=== PATIENT | female | born 1960 | race Caucasian/White ===

== ENCOUNTER 2018-07-22 16:44 | Inpatient (IN) ==
[2018-07-22] MEDS ORDERED: Aluminum/Magnesium/Simethacone Susp 30 ML UDC PO PRN (21:19)
[2018-07-22] MEDS ORDERED: Melatonin 5 MG Tablet PO PRN (21:22)
[2018-07-22] MEDS ORDERED: LORazepam 1 MG Tablet PO PRN (21:26)
[2018-07-22] MEDS ORDERED: Sodium Chloride 0.9% 2 ML Flush PRN IV.FLUSH (21:31)
[2018-07-22] MEDS: Folic Acid 1 MG Tablet PO SCH (21:59)
[2018-07-22 22:04] LABS: Baso # (Auto) 0.1 th/mm3 (0.0-0.2); Baso % (Auto) 0.9 % (0.0-2.0); Eos % (Auto) 0.4 % (0.0-4.0); Hematocrit 42.3 % (35.0-46.0); Hemoglobin 14.9 gm/dL (11.6-15.3); Lymph # (Auto) 1.8 th/mm3 (1.0-4.8); Lymph % (Auto) 18.4 % (9.0-44.0); Mean Corpuscular HGB Conc 35.2 % (32.0-36.0); Mean Corpuscular Hemoglobin 34.7 pg (27.0-34.0); Mean Corpuscular Volume 98.6 fL (80.0-100.0); Mono # (Auto) 0.6 th/mm3 (0.0-0.9); Mono % (Auto) 6.4 % (0.0-8.0); Neut # (Auto) 7.4 th/mm3 (1.8-7.7); Neut % (Auto) 73.9 % (16.0-70.0); Platelet Count 230 th/mm3 (150-450); Red Blood Count 4.29 mil/mm3 (4.00-5.30); Red Cell Distribution Width 12.9 % (11.6-17.2)
[2018-07-22 22:17] LABS: Prothrombin Time 10.2 sec (9.8-11.6)
[2018-07-22 22:27] LABS: Albumin 3.9 g/dL (3.4-5.0); Anion Gap 14 meq/L (5-15); Aspartate Aminotransferase 19 U/L (15-37); Blood Urea Nitrogen 8 mg/dL (7-18); Calcium 8.8 mg/dL (8.5-10.1); Carbon Dioxide 23.3 meq/L (21.0-32.0); Chloride 104 meq/L (98-107); Glomerular Filtration Rate 85 mL/min (>89); Glucose,Random 70 mg/dL (74-106); Potassium 3.4 meq/L (3.5-5.1); Sodium 141 meq/L (136-145)
[2018-07-22 22:28] LABS: Alanine Aminotransferase 22 U/L (10-53)
[2018-07-22 22:30] LABS: Alkaline Phosphatase 112 U/L (45-117); Total Protein 7.8 g/dL (6.4-8.2)
[2018-07-23] MEDS: Folic Acid 1 MG Tablet PO SCH (08:50)
[2018-07-23 08:58] LABS: Baso # (Auto) 0.1 th/mm3 (0.0-0.2); Baso % (Auto) 1.5 % (0.0-2.0); Eos # (Auto) 0.1 th/mm3 (0.0-0.4); Eos % (Auto) 0.7 % (0.0-4.0); Hematocrit 41.1 % (35.0-46.0); Hemoglobin 14.3 gm/dL (11.6-15.3); Lymph # (Auto) 0.7 th/mm3 (1.0-4.8); Lymph % (Auto) 7.4 % (9.0-44.0); Mean Corpuscular HGB Conc 34.9 % (32.0-36.0); Mean Corpuscular Volume 100.4 fL (80.0-100.0); Mean Platelet Volume 7.5 fL (7.0-11.0); Mono # (Auto) 0.4 th/mm3 (0.0-0.9); Mono % (Auto) 4.6 % (0.0-8.0); Neut # (Auto) 8.1 th/mm3 (1.8-7.7); Neut % (Auto) 85.8 % (16.0-70.0); Platelet Count 230 th/mm3 (150-450); Red Blood Count 4.09 mil/mm3 (4.00-5.30); Red Cell Distribution Width 13.2 % (11.6-17.2); White Blood Count 9.4 th/mm3 (4.0-11.0)
[2018-07-23] MEDS ORDERED: Sodium Chloride 0.9% 2 ML Flush BID IV.FLUSH SCH (09:00)
[2018-07-23 09:33] LABS: Albumin 3.6 g/dL (3.4-5.0); Anion Gap 13 meq/L (5-15); Aspartate Aminotransferase 19 U/L (15-37); Blood Urea Nitrogen 12 mg/dL (7-18); Calcium 8.4 mg/dL (8.5-10.1); Carbon Dioxide 22.8 meq/L (21.0-32.0); Chloride 103 meq/L (98-107); Glomerular Filtration Rate Greater Than 89 mL/min (>89); Glucose,Random 140 mg/dL (74-106); Potassium 3.6 meq/L (3.5-5.1); Sodium 139 meq/L (136-145)
[2018-07-23 09:34] LABS: Cholesterol 198 mg/dL (120-200)
[2018-07-23 09:44] LABS: Alanine Aminotransferase 20 U/L (10-53); Alkaline Phosphatase 106 U/L (45-117); Chol/HDL Ratio 3.89 Ratio; HDL Cholesterol 50.8 mg/dL (40.0-60.0); LDL Cholesterol,Calculated 100 mg/dL (0-99); Total Protein 7.4 g/dL (6.4-8.2); Triglycerides 237 mg/dL (42-150)
--- NOTE | 2018-07-23 10:31 | P.HPPSY ---
Provisional Diagnosis Admission Date: July 22, 2018 19:58 [place] I.: 1. Adjustment disorder with mixed disturbance of emotions and conduct Rule out major depressive episode 2. Alcohol abuse 3. Reported history of depression and anxiety [place] II.: Deferred Competence Certification of Person's Competence To Provide Express and Informed Consent I have personally examined Shirley Macias, a person being served at [facility] on, July 23, 2018 1031. Express and informed consent means consent voluntarily given in writing, by a competent person, after sufficient explanation and disclosure of the subject matter involved to enable the person to make a knowing and willful decision without any element of force, fraud, deceit, duress, or other form of constraint or coercion. This person is 18 years of age or older, is not now known to be incompetent to consent to treatment with a guardian advocate, and does not have a health care surrogate or proxy currently making medical treatment decisions. I have found this person to be one of the following: [] Competent to provide express and informed consent, as defined above, for voluntary admission to this facility and is competent to provide express and informed consent for treatment. He/she has the consistent capacity to make well reasoned, willful, and knowing decisions concerning his or her medical or mental health treatment. The person fully and consistently understands the purpose of the admission for examination/placement and is fully capable of personally exercising all rights assured under [place] [] Incompetent to provide express and informed consent to voluntary admission, and this is incompetent to provide express and informed consent to treatment. The person must be transferred to involuntary status and a petition for a guardian advocate filed with the Circuit Court. [X] Refusing to provide express and informed consent to voluntary admission but is competent to provide express and informed consent for treatment. The person must be discharged or transferred to involuntary status. Form shall be completed within 24 hours of a person's arrival at the receiving facility and filed in the clinical record of each person: 1. Admitted on a voluntary basis 2. Permitted to provide express and informed consent to his/her own treatment 3. Allowed to transfer from involuntary to voluntary status 4. Prior to permitting a person to consent to his or her own treatment after having been previously found incompetent to consent to treatment. History of Present Illness Capacity: Has capacity (to consent for meds/treatment) Chief Complaint: Overdose History of Present Illness: Ms. Macias is a 58-year-old female with a reported history of depression and anxiety who presents in transfer from [facility] under a Garza Act initiated by law enforcement alleging overdose on Aleve in the setting of alcohol. Documents from outside hospital reviewed. Patient was medically cleared at outside hospital, although she apparently did require intubation initially secondary to her overdose. Reviewing our electronic medical record, it appears this is patient's first visit to [place]. Patient seen and examined with counselor and nurse. Chart reviewed. Case discussed with nursing staff. Case discussed with counselor. On my examination today, the patient maintains that she does not recall her presenting overdose. She says that she had had a great day the day that she made her overdose. She says that she began drinking with her boyfriend, Benny, after Benny's parents went to sleep as it is typical for them. She says that Benny later informed her that she became upset when he castigated her slurred speech and it was apparently in this setting that the patient made her presenting overdose, although again the patient has no personal recollection of this. She does note that she had been off of her Paxil for 6 days secondary to running out and had been noting that she had been crying more off of this medication. Presently, the patient says that she feels somewhat irritable. She denies any suicidal or homicidal ideation, intent or plan. She has no hypomanic or manic symptoms presently, nor does she give any history of same. She denies any audiovisual hallucinations. I can elicit no delusional believes. The remainder of the psychiatric ROS is negative. She does complain of some throat discomfort secondary to having been intubated. No other acute physical complaints. Past psychiatric history: The patient reports that she has depression and anxiety. She is not presently under the care of a psychiatrist but has been prescribed Paxil 20 mg a day for the last year. She denies any history of psychiatric admissions or suicide attempts. Family history: The patient denies a family history of serious mental illness or suicide. She does report that her father struggled with alcohol use issues and that there is an extensive family history of alcoholism in the family. Chemical dependency history: The patient denies any abuse of illicit drugs. She does say that she typically drinks about 8 beers a night, although she emphasizes this is not every night, after Benny's parents go to sleep. She denies any history of DTs or seizures. She does note that she has sometimes been hung over the next day. She attended a 12-step meeting 1 time but "I did not like them digging into my personal life" and so did not return. Patient also smokes cigarettes. Social history: The patient moved to the area 6 months ago to help take care of Benny's parents. She has a 22-year-old daughter with cerebral palsy and a 28- year-old daughter. She previously worked at the [email or web address]. She denies any history. She denies any legal problems. Denies any access to guns or firearms. She is a [employer]ism. Past medical history includes a history of hypothyroidism and hypertension. - Inpatient Certification I certify that the inpatient services were ordered in accordance with Medicare regulations governing the order. This includes certification that hospital inpatient services are reasonable and necessary and in the case of services not specified as inpatient-only under 42 CFR 419.22(n), that they are appropriately provided as inpatient services in accordance to with the 2-midnight benchmark under 43 CFR 412.3(e) I certify that inpatient psychiatric hospital services are medically necessary. Evaluation and treatment and/or diagnostic testing are expected to improve the patient's condition. The patient needs on a daily basis, active treatment furnished directly by or requiring the supervision of inpatient psychiatric facility personnel. Estimated Total Length of Stay (Days): 5 (3-5) Plans for Post Hospital Care: Not yet determined Review of Systems All other systems reviewed negative except as stated in HPI Quality Measures - Psychiatric History Psychological trauma history: No reported trauma history to me - Patient Strengths Patient's strengths (minimum of 2): In a monitored setting. Verbally fluent. Medications and Allergies Active Medications: Active Medications Acetaminophen (Tylenol) 650 mg PO Q4H PRN PRN Reason: Pain 1-5 or Temp >101F Al Hydrox/Mg Hydrox/Simethicone (Mag-Al Plus Susp Liq) 30 ml PO Q6H PRN PRN Reason: DYSPEPSIA Al Hydroxide/Mg Hydroxide (Milk Of Magnesia Liq) 30 ml PO DAILY PRN PRN Reason: Constipation Flumazenil (Romazecon Inj) 0.2 mg IV.PUSH Q1M PRN PRN Reason: OVERSEDATION Folic Acid (Folic Acid) 1 mg PO DAILY [facility] Last Admin: 07/23/18 08:50 Dose: 1 mg Lorazepam (Ativan) 1 mg PO Q4H PRN PRN Reason: for CIWA 8-10 Lorazepam (Ativan) 2 mg PO Q2H PRN PRN Reason: for CIWA 11-14 Lorazepam (Ativan Inj) 2 mg IV.PUSH Q2H PRN PRN Reason: for CIWA 11-14 Lorazepam (Ativan Inj) 2 mg IV.PUSH Q15M PRN PRN Reason: for CIWA > 20 Lorazepam (Ativan Inj) 1 mg IV.PUSH Q4H PRN PRN Reason: for CIWA 8-10 Lorazepam (Ativan Inj) 2 mg IV.PUSH Q1H PRN PRN Reason: for CIWA 15-20 Melatonin (Melatonin) 5 mg PO HS PRN PRN Reason: INSOMNIA Nicotine (Habitrol 21 Mg Patch.24 Hr) 1 patch T-DERMAL DAILY PRN PRN Reason: NICOTINE CRAVING Patch Removal (Remove Old Patch) 1 each T-DERMAL HS [facility] Last Admin: 07/22/18 21:56 Dose: Not Given Sodium Chloride (Ns Flush) 2 ml IV.FLUSH BID [facility] Last Admin: 07/23/18 08:39 Dose: Not Given Sodium Chloride (Ns Flush) 2 ml IV.FLUSH PRN PRN PRN Reason: FLUSH AFTER USING IV ACCESS Thiamine HCl (Vitamin B1) 100 mg PO DAILY [facility] Last Admin: 07/23/18 08:50 Dose: 100 mg Allergies Allergy/AdvReac Type Severity Reaction Status Date / Time No Known Allergies Allergy Verified 07/22/18 20:09 Results - Labs CBC & Chem 7: 07/23/18 08:40 07/23/18 08:40 Labs: Laboratory Results - last 24 hr 07/22/18 07/22/18 07/22/18 21:53 21:53 21:53 WBC 10.0 RBC 4.29 Hgb 14.9 Hct 42.3 MCV 98.6 MCH 34.7 H MCHC 35.2 RDW 12.9 Plt Count 230 MPV 8.0 Prelim Diff (Auto) Slide review pending Neut % (Auto) 73.9 H Lymph % (Auto) 18.4 [place] % (Auto) 6.4 Eos % (Auto) 0.4 Baso % (Auto) 0.9 Neut # (Auto) 7.4 Lymph # (Auto) 1.8 [place] # (Auto) 0.6 Eos # (Auto) 0.0 Baso # (Auto) 0.1 WBC Differential . Diff Scan Auto diff confirmed Differential Comment . PT 10.2 INR 1.0 Sodium 141 Potassium 3.4 L Chloride 104 Carbon Dioxide 23.3 Anion Gap 14 BUN 8 Creatinine 0.71 Estimated GFR 85 L Random Glucose 70 L Calcium 8.8 Total Bilirubin 0.9 AST 19 ALT 22 Alkaline Phosphatase 112 Ammonia Total Protein 7.8 Albumin 3.9 Triglycerides Cholesterol LDL Cholesterol, Calc HDL Cholesterol Cholesterol/HDL Ratio TSH 07/22/18 07/23/18 07/23/18 21:53 08:40 08:40 WBC 9.4 RBC 4.09 Hgb 14.3 Hct 41.1 MCV 100.4 H MCH 35.0 H MCHC 34.9 RDW 13.2 Plt Count 230 MPV 7.5 Prelim Diff (Auto) Neut % (Auto) 85.8 H Lymph % (Auto) 7.4 L [place] % (Auto) 4.6 Eos % (Auto) 0.7 Baso % (Auto) 1.5 Neut # (Auto) 8.1 H Lymph # (Auto) 0.7 L [place] # (Auto) 0.4 Eos # (Auto) 0.1 Baso # (Auto) 0.1 WBC Differential . Diff Scan Differential Comment Auto diff final PT INR Sodium 139 Potassium 3.6 Chloride 103 Carbon Dioxide 22.8 Anion Gap 13 BUN 12 Creatinine 0.64 Estimated GFR Greater than 89 Random Glucose 140 H Calcium 8.4 L Total Bilirubin 0.9 AST 19 ALT 20 Alkaline Phosphatase 106 Ammonia 17 Total Protein 7.4 Albumin 3.6 Triglycerides 237 H Cholesterol 198 LDL Cholesterol, Calc 100 H HDL Cholesterol 50.8 Cholesterol/HDL Ratio 3.89 TSH 0.620 Labs reviewed. Exam Vital signs: Vital Signs 07/22/18 20:12 07/22/18 20:51 07/23/18 05:46 Temperature 97.4 F L 97.6 F Pulse Rate 90 80 Respiratory Rate 18 17 Blood Pressure 180/88 H 143/90 H 142/95 H Pulse Oximetry 98 98 Intake & Output 07/22/18 07/23/18 07/23/18 18:59 06:59 18:59 Weight 71.6 kg Other: Weight On Admission 71.6 kg Narrative: Physical exam was completed at outside hospital. On my exam, patient appears to be in no acute physical distress. No motor abnormalities noted. No signs of intoxication or withdrawal noted. Labs and vitals reviewed. Mental Status Examination Appearance: Appropriate Consciousness: Alert Orientation: x4 Motor Activity: Normal gait Speech: Unremarkable Language: Adequate Fund of Knowledge: Adequate Attention and Concentration: Adequate Memory: Unremarkable (Grossly intact on clinical exam) Mood: Irritable Affect: Appropriate Thought Process & Associations: Intact Thought Content: Appropriate Hallucination Type: None Delusion Type: None Suicidal Ideation: No (Unclear whether patient is reliable to contract for safety) Suicidal Plan: No Suicidal Intention: No Homicidal Ideation: No Homicidal Plan: No Homicidal Intention: No Insight: Fair Judgment: Impulsive Assessment and Plan - Assessment (1) Adjustment disorder with mixed disturbance of emotions and conduct Code(s): F43.25 - Adjustment disorder with mixed disturbance of emotions and conduct Status: Acute (2) Alcohol abuse Code(s): F10.10 - Alcohol abuse, uncomplicated Status: Acute - Plan Plan: 58-year-old female with psychiatric history as detailed above who presents in transfer from outside hospital under Garza act. On my examination today, the patient insists that she has no recollection of presenting overdose as she was intoxicated with alcohol at the time. She denies SI or HI now. She does note that she had been without her Paxil prior to admission. Patient requires psychiatric hospitalization at this time for safety, observation and stabilization. Admit inpatient. Patient is presently declining to consent for voluntary admission. Involuntary status. I have completed first opinion. Consult for second opinion. Patient retains capacity to consent for medication. Resume Paxil 20 mg daily. Atarax as needed for anxiety. Melatonin as needed for sleep. Hospitalist consultation to follow up on patient's presenting overdose. CIWA scale with Ativan for the management of any withdrawal. Thiamine and folate. Seizure precautions. Vitals every shift. Counselor to see. Collateral information. Disposition planning. Estimated length of stay: 3-5 days. Justification for Continued Inpatient Stay: See above Discharge Planning: In a monitored setting. Verbally fluent.
--- NOTE | 2018-07-23 13:08 | P.CONPSY ---
Provisional Diagnosis Admission Date: July 22, 2018 19:58 [place] I.: 1. Adjustment disorder with mixed disturbance of emotions and conduct Rule out major depressive episode 2. Alcohol abuse 3. Reported history of depression and anxiety [place] II.: Deferred History of Present Illness Service: Psychiatry Primary Care Provider: UNKNOWN History of Present Illness: Ms. Macias is a 58-year-old female with a reported history of depression and anxiety who presents in transfer from [facility] under a Garza Act initiated by law enforcement alleging overdose on Aleve in the setting of alcohol. Documents from outside hospital reviewed. Patient was medically cleared at outside hospital, although she apparently did require intubation initially secondary to her overdose. Reviewing our electronic medical record, it appears this is patient's first visit to [place].Patient seen and examined with counselor and nurse. Chart reviewed. Case discussed with nursing staff. Case discussed with counselor. On my examination today, the patient maintains that she does not recall her presenting overdose. She says that she had had a great day the day that she made her overdose. She says that she began drinking with her boyfriend, Benny, after Benny's parents went to sleep as it is typical for them. She says that Benny later informed her that she became upset when he castigated her slurred speech and it was apparently in this setting that the patient made her presenting overdose, although again the patient has no personal recollection of this. She does note that she had been off of her Paxil for 6 days secondary to running out and had been noting that she had been crying more off of this medication. Presently, the patient says that she feels somewhat irritable. She denies any suicidal or homicidal ideation, intent or plan. She has no hypomanic or manic symptoms presently, nor does she give any history of same. She denies any audiovisual hallucinations. I can elicit no delusional believes. The remainder of the psychiatric ROS is negative. She does complain of some throat discomfort secondary to having been intubated. No other acute physical complaints. The patient is a 58-year-old woman, domiciled in [facility], with a psychiatric history of anxiety and depression, alcohol use disorder, who was admitted in psychiatry on the Garza act due to a suicidal attempt by overdosing with alcohol and pain medication. Patient was admitted in critical care, intubated, now medically clear. Consulted to me for second opinion. On psychiatric evaluation the patient is irritable, kind of oppositional, and stating that she does not want make the same story anymore. The patient states that she does not remember the circumstances around her overdose. She clarifies that she was very drunk and she did not have any recent to kill herself. She says that she is surprised that she overdosed and she cannot understand it. Patient says that she has too many reasons to live for. She admits that she has been drinking more alcohol than usual. At this moment she denies suicidal enemas ideation, she denies visual and auditory hallucinations. Medications and Allergies Active Medications: Active Medications Acetaminophen (Tylenol) 650 mg PO Q4H PRN PRN Reason: Pain 1-5 or Temp >101F Al Hydrox/Mg Hydrox/Simethicone (Mag-Al Plus Susp Liq) 30 ml PO Q6H PRN PRN Reason: DYSPEPSIA Al Hydroxide/Mg Hydroxide (Milk Of Magnesia Liq) 30 ml PO DAILY PRN PRN Reason: Constipation Benzocaine (Hurricaine 20% Oral [place]) 1 spray OROPHARYNG Q6H PRN PRN Reason: Throat discomfort Flumazenil (Romazecon Inj) 0.2 mg IV.PUSH Q1M PRN PRN Reason: OVERSEDATION Folic Acid (Folic Acid) 1 mg PO DAILY [facility] Last Admin: 07/23/18 08:50 Dose: 1 mg Hydroxyzine HCl (Atarax) 50 mg PO Q6H PRN PRN Reason: ANXIETY Lorazepam (Ativan) 1 mg PO Q4H PRN PRN Reason: for CIWA 8-10 Lorazepam (Ativan) 2 mg PO Q2H PRN PRN Reason: for CIWA 11-14 Lorazepam (Ativan Inj) 2 mg IV.PUSH Q2H PRN PRN Reason: for CIWA 11-14 Lorazepam (Ativan Inj) 2 mg IV.PUSH Q15M PRN PRN Reason: for CIWA > 20 Lorazepam (Ativan Inj) 1 mg IV.PUSH Q4H PRN PRN Reason: for CIWA 8-10 Lorazepam (Ativan Inj) 2 mg IV.PUSH Q1H PRN PRN Reason: for CIWA 15-20 Melatonin (Melatonin) 5 mg PO HS PRN PRN Reason: INSOMNIA Nicotine (Habitrol 21 Mg Patch.24 Hr) 1 patch T-DERMAL DAILY PRN PRN Reason: NICOTINE CRAVING Last Admin: 07/23/18 11:33 Dose: 1 patch Paroxetine HCl (Paxil) 20 mg PO DAILY [facility] Last Admin: 07/23/18 11:33 Dose: 20 mg Patch Removal (Remove Old Patch) 1 each T-DERMAL HS [facility] Last Admin: 07/22/18 21:56 Dose: Not Given Thiamine HCl (Vitamin B1) 100 mg PO DAILY [facility] Last Admin: 07/23/18 08:50 Dose: 100 mg Allergies Allergy/AdvReac Type Severity Reaction Status Date / Time No Known Allergies Allergy Verified 07/22/18 20:09 Home Medications Medication Instructions Recorded Confirmed Type levothyroxine 88 mcg PO DAILY 07/23/18 07/23/18 History lisinopril 20 mg PO DAILY 07/23/18 07/23/18 History paroxetine HCl [Paxil] 20 mg PO DAILY 07/23/18 07/23/18 History Exam Vital signs: Vital Signs 07/22/18 20:12 07/22/18 20:51 07/23/18 05:46 Temperature 97.4 F L 97.6 F Pulse Rate 90 80 Respiratory Rate 18 17 Blood Pressure 180/88 H 143/90 H 142/95 H Pulse Oximetry 98 98 Intake & Output 07/22/18 07/23/18 07/23/18 18:59 06:59 18:59 Weight 71.6 kg Other: Weight On Admission 71.6 kg Mental Status Examination Appearance: Appropriate Consciousness: Alert Orientation: x4 Motor Activity: Normal gait Speech: Unremarkable Language: Adequate Fund of Knowledge: Adequate Attention and Concentration: Adequate Memory: Unremarkable (Grossly intact on clinical exam) Mood: Irritable Affect: Appropriate Thought Process & Associations: Intact Thought Content: Appropriate Hallucination Type: None Delusion Type: None Suicidal Ideation: No (Unclear whether patient is reliable to contract for safety) Suicidal Plan: No Suicidal Intention: No Homicidal Ideation: No Homicidal Plan: No Homicidal Intention: No Insight: Fair Judgment: Impulsive Assessment and Plan - Assessment (1) Adjustment disorder with mixed disturbance of emotions and conduct Code(s): F43.25 - Adjustment disorder with mixed disturbance of emotions and conduct Status: Acute (2) Alcohol abuse Code(s): F10.10 - Alcohol abuse, uncomplicated Status: Acute - Plan Plan: I have seen and examined this patient, reviewed documentation, I agree and concur with Dr. Payton assessment and plan. Justification for Continued Inpatient Stay: Continue admission
[2018-07-23] MEDS ORDERED: Lisinopril 20 MG Tablet PO ONE (13:57)
--- NOTE | 2018-07-23 16:01 | P.CON ---
History of Present Illness Service: Hospitalists Consult date: 07/23/18 Requesting Physician: Neri Payton Reason for Consult: Follow up on overdose Primary Care Provider: UNKNOWN Chief Complaint: depression/overdose History of Present Illness: 58-year-old female with history of hypertension, hypothyroidism, depression, anxiety, admitted to inpatient psychiatry under Garza act from [facility] after hospitalization for overdose on alcohol and Aleve requiring intubation. Hospitalist consulted to follow-up on overdose and medical management. The patient is seen in her room with RN at bedside. The patient's only medical complaint is a sore throat due to being intubated during last hospitalization. She reports an occasional nonproductive cough which he believes is secondary to irritation in the back of her throat. She is requesting a numbing spray that she received at the previous hospital. She denies any fever/chills or chest pains. She is tolerating oral intake. Denies any abdominal pain, nausea/vomiting, or diarrhea. Denies any urinary complaints. She is on lisinopril for her high blood pressure and Synthroid for her hypothyroidism. She denies any other medical problems. She has no other medical complaints at this time. Review of Systems All other systems reviewed negative except as stated in HPI PMFSH - History History Provided By: Patient - Medical History Medical History: Medical History (Last Updated 07/23/18 @ 16:09 by Phuong Bernabe) Anxiety Depression History of hysterectomy Hypertension Hypothyroidism - Surgical History Surgical History: Surgical History (Last Updated 07/23/18 @ 16:09 by Phuong Bernabe) History of ankle surgery History of section - Family History Family History: Family History (Last Updated 07/23/18 @ 16:10 by Phuong Bernabe) Sister Autoimmune disorder Grandparent Heart disease Grandparent Stroke Father Cirrhosis Mother Kidney failure - Social History I have reviewed the patient's Social History: Yes - Tobacco History Tobacco Use In Past 30 Days: Yes Smoking Status: Current every day smoker (2/3 PPD) Tobacco Type: Cigarettes - Alcohol History How Often Do You Have a Drink Containing Alcohol: 2 to 3 times a week (8 beers at a time) - Substance Use Type Alcohol Status: Active Route Used: By Mouth Frequency: 8 beers or 4 mini citlaly every other day Reason for Use: Calm Down, Feels Good Medications and Allergies Active Medications: Active Medications Acetaminophen (Tylenol) 650 mg PO Q4H PRN PRN Reason: Pain 1-5 or Temp >101F Al Hydrox/Mg Hydrox/Simethicone (Mag-Al Plus Susp Liq) 30 ml PO Q6H PRN PRN Reason: DYSPEPSIA Al Hydroxide/Mg Hydroxide (Milk Of Magnesia Liq) 30 ml PO DAILY PRN PRN Reason: Constipation Benzocaine (Hurricaine 20% Oral Collbran) 1 spray OROPHARYNG Q6H PRN PRN Reason: Throat discomfort Benzonatate (Tessalon Perles) 100 mg PO Q8H PRN PRN Reason: COUGH Flumazenil (Romazecon Inj) 0.2 mg IV.PUSH Q1M PRN PRN Reason: OVERSEDATION Folic Acid (Folic Acid) 1 mg PO DAILY [facility] Last Admin: 07/23/18 08:50 Dose: 1 mg Hydroxyzine HCl (Atarax) 50 mg PO Q6H PRN PRN Reason: ANXIETY Levothyroxine Sodium (Synthroid) 88 mcg PO DAILY@0600 [facility] Lisinopril (Prinivil) 20 mg PO DAILY [facility] Lorazepam (Ativan) 1 mg PO Q4H PRN PRN Reason: for CIWA 8-10 Lorazepam (Ativan) 2 mg PO Q2H PRN PRN Reason: for CIWA 11-14 Lorazepam (Ativan Inj) 2 mg IV.PUSH Q2H PRN PRN Reason: for CIWA 11-14 Lorazepam (Ativan Inj) 2 mg IV.PUSH Q15M PRN PRN Reason: for CIWA > 20 Lorazepam (Ativan Inj) 1 mg IV.PUSH Q4H PRN PRN Reason: for CIWA 8-10 Lorazepam (Ativan Inj) 2 mg IV.PUSH Q1H PRN PRN Reason: for CIWA 15-20 Melatonin (Melatonin) 5 mg PO HS PRN PRN Reason: INSOMNIA Nicotine (Habitrol 21 Mg Patch.24 Hr) 1 patch T-DERMAL DAILY PRN PRN Reason: NICOTINE CRAVING Last Admin: 07/23/18 11:33 Dose: 1 patch Paroxetine HCl (Paxil) 20 mg PO DAILY [facility] Last Admin: 07/23/18 11:33 Dose: 20 mg Patch Removal (Remove Old Patch) 1 each T-DERMAL HS [facility] Last Admin: 07/22/18 21:56 Dose: Not Given Thiamine HCl (Vitamin B1) 100 mg PO DAILY [facility] Last Admin: 07/23/18 08:50 Dose: 100 mg Allergies Allergy/AdvReac Type Severity Reaction Status Date / Time No Known Allergies Allergy Verified 07/22/18 20:09 Home Medications Medication Instructions Recorded Confirmed Type levothyroxine 88 mcg PO DAILY 07/23/18 07/23/18 History lisinopril 20 mg PO DAILY 07/23/18 07/23/18 History paroxetine HCl [Paxil] 20 mg PO DAILY 07/23/18 07/23/18 History Physical Exam Vital signs: Vital Signs 07/22/18 20:12 07/22/18 20:51 07/23/18 05:46 Temperature 97.4 F L 97.6 F Pulse Rate 90 80 Respiratory Rate 18 17 Blood Pressure 180/88 H 143/90 H 142/95 H Pulse Oximetry 98 98 Intake & Output 07/22/18 07/23/18 07/23/18 18:59 06:59 18:59 Weight 71.6 kg Other: Weight On Admission 71.6 kg Narrative: GENERAL: Well-nourished, well-developed pleasant middle-age female patient in [facility]. SKIN: Warm and dry. No rash. HEENT: Normocephalic. Atraumatic. Pupils equal and round. Mucous membranes pink and moist. Posterior oropharynx with mild erythema/irritation; no tonsillar exudate/edema. NECK: Supple. Trachea midline. CARDIOVASCULAR: Regular rate and rhythm. No murmur appreciated. RESPIRATORY: No accessory muscle use. Clear to auscultation. Breath sounds equal bilaterally. GASTROINTESTINAL: Abdomen soft, non-tender, nondistended. Normoactive bowel sounds x4. MUSCULOSKELETAL: No obvious deformities. Extremities without clubbing, cyanosis , or edema. NEUROLOGICAL: Awake and alert. No obvious cranial nerve deficits. Motor grossly within normal limits. Moving all extremities spontaneously. Normal speech. PSYCHIATRIC: Appropriate mood and affect; insight and judgment normal. Results - Labs CBC & Chem 7: 07/23/18 08:40 07/23/18 08:40 Labs: Laboratory Results - last 24 hr 07/22/18 07/22/18 07/22/18 21:53 21:53 21:53 WBC 10.0 RBC 4.29 Hgb 14.9 Hct 42.3 MCV 98.6 MCH 34.7 H MCHC 35.2 RDW 12.9 Plt Count 230 MPV 8.0 Prelim Diff (Auto) Slide review pending Neut % (Auto) 73.9 H Lymph % (Auto) 18.4 [place] % (Auto) 6.4 Eos % (Auto) 0.4 Baso % (Auto) 0.9 Neut # (Auto) 7.4 Lymph # (Auto) 1.8 [place] # (Auto) 0.6 Eos # (Auto) 0.0 Baso # (Auto) 0.1 WBC Differential . Diff Scan Auto diff confirmed Differential Comment . PT 10.2 INR 1.0 Sodium 141 Potassium 3.4 L Chloride 104 Carbon Dioxide 23.3 Anion Gap 14 BUN 8 Creatinine 0.71 Estimated GFR 85 L Random Glucose 70 L Calcium 8.8 Total Bilirubin 0.9 AST 19 ALT 22 Alkaline Phosphatase 112 Ammonia Total Protein 7.8 Albumin 3.9 Triglycerides Cholesterol LDL Cholesterol, Calc HDL Cholesterol Cholesterol/HDL Ratio TSH 07/22/18 07/23/18 07/23/18 21:53 08:40 08:40 WBC 9.4 RBC 4.09 Hgb 14.3 Hct 41.1 MCV 100.4 H MCH 35.0 H MCHC 34.9 RDW 13.2 Plt Count 230 MPV 7.5 Prelim Diff (Auto) Neut % (Auto) 85.8 H Lymph % (Auto) 7.4 L [place] % (Auto) 4.6 Eos % (Auto) 0.7 Baso % (Auto) 1.5 Neut # (Auto) 8.1 H Lymph # (Auto) 0.7 L [place] # (Auto) 0.4 Eos # (Auto) 0.1 Baso # (Auto) 0.1 WBC Differential . Diff Scan Differential Comment Auto diff final PT INR Sodium 139 Potassium 3.6 Chloride 103 Carbon Dioxide 22.8 Anion Gap 13 BUN 12 Creatinine 0.64 Estimated GFR Greater than 89 Random Glucose 140 H Calcium 8.4 L Total Bilirubin 0.9 AST 19 ALT 20 Alkaline Phosphatase 106 Ammonia 17 Total Protein 7.4 Albumin 3.6 Triglycerides 237 H Cholesterol 198 LDL Cholesterol, Calc 100 H HDL Cholesterol 50.8 Cholesterol/HDL Ratio 3.89 TSH 0.620 Assessment and Plan - Plan 58-year-old female with history of hypertension, hypothyroidism, depression, anxiety, admitted to inpatient psychiatry under Garza act from [facility] after hospitalization for overdose on alcohol and Aleve requiring intubation. Hospitalist consulted to follow-up on overdose and medical management. Depression/overdose: Acute, medically stabilized from overdose during previous admission at [facility] -Vital signs reviewed and stable, patient AAO x4 -Continue treatment of depression per psychiatry Hypertension: BP elevated, has not received home medications -Restart home lisinopril 20 mg daily -Monitor BP, adjust antihypertensives as needed Hypothyroidism: Chronic -TSH within normal limits -Continue patient's Synthroid Sore throat/Cough: Secondary to irritation from recent intubation -Continue benzocaine spray as needed -Tessalon Perles prn cough -Patient is at risk for developing pneumonia secondary to recent intubation, however afebrile, no leukocytosis, and nonproductive cough -If the patient does develop fever, leukocytosis, or purulent cough, consider CXR Hyperlipidemia: LDL 100 -mortgage loan counselor on diet control for now, no hx of stroke, heart disease, or diabetes -repeat lipid panel in 3 months as outpatient Alcohol Abuse: patient drinks 8beers 3x/week. Denies any hx of withdrawal or seizures -mortgage loan counselor on cessation -continue thiamine/folate/MV -CIWA protocol -monitor for withdrawal Tobacco Abuse: chronic, smokes over 1/2 PPD cigarettes -mortgage loan counselor on cessation -continue nicotine patch Elevated Blood Glucose: BG 140. No reported hx of diabetes -checking HgbA1c DVT Prophylaxis: patient is ambulatory Discharge Planning: The patient is medically stable at this time, hospitalist team will sign off. Please re-consult as needed. Expect better blood pressure control after restarting home lisinopril today, however please re-consult if uncontrolled. Thank you for this consultation.
[2018-07-23 16:53] LABS: Hemoglobin A1c 5.1 % (4.3-6.0)
[2018-07-23] MEDS: Benzocaine 20% Oral Spray 60 ML Can OROPHARYNG PRN (17:11)
[2018-07-23] MEDS: Benzonatate 100 MG Capsule PO PRN (17:31)
[2018-07-24] MEDS: Levothyroxine 88 MCG Tablet PO SCH (06:05)
[2018-07-24] MEDS: Multivitamin/Minerals Therapeutic Tablet PO SCH (08:35)
[2018-07-24] MEDS: Lisinopril 20 MG Tablet PO SCH (08:35)
[2018-07-24] MEDS: Folic Acid 1 MG Tablet PO SCH (08:35)
[2018-07-24] MEDS: Benzocaine 20% Oral Spray 60 ML Can OROPHARYNG PRN ×2 (08:40→17:40)
[2018-07-24] MEDS: Benzonatate 100 MG Capsule PO PRN ×2 (08:40→17:40)
[2018-07-24] MEDS: Acetaminophen 325 MG Tablet PO PRN (08:46)
--- NOTE | 2018-07-24 12:05 | P.PNPSY ---
Subjective Chief Complaint: Overdose Remarks: Patient was seen and case discussed with nursing. Patient is pleasant and cooperative with exam. CIWA is 0. She minimizes her suicide attempt. Today she is feeling "okay." Largely seclusive to her room. Eating and sleeping well. Compliant with medications. She denies suicidal or homicidal ideation intent or plan Mental Status Examination Appearance: Appropriate Consciousness: Alert Orientation: x4 Motor Activity: Normal gait Speech: Unremarkable Language: Adequate Fund of Knowledge: Adequate Attention and Concentration: Adequate Memory: Unremarkable (Grossly intact on clinical exam) Mood: Irritable Affect: Appropriate Thought Process & Associations: Intact Thought Content: Appropriate Hallucination Type: None Delusion Type: None Suicidal Ideation: No (Unclear whether patient is reliable to contract for safety) Suicidal Plan: No Suicidal Intention: No Homicidal Ideation: No Homicidal Plan: No Homicidal Intention: No Insight: Fair Judgment: Impulsive Assessment and Plan - Assessment (1) Adjustment disorder with mixed disturbance of emotions and conduct Code(s): F43.25 - Adjustment disorder with mixed disturbance of emotions and conduct Status: Acute (2) Alcohol abuse Code(s): F10.10 - Alcohol abuse, uncomplicated Status: Acute - Plan Plan: Continue current treatment plan Justification for Continued Inpatient Stay: Patient would decompensate in a less restrictive setting
[2018-07-25] MEDS: Levothyroxine 88 MCG Tablet PO SCH (05:58)
[2018-07-25] MEDS: Folic Acid 1 MG Tablet PO SCH (08:52)
[2018-07-25] MEDS: Benzonatate 100 MG Capsule PO PRN (08:52)
[2018-07-25] MEDS: Lisinopril 20 MG Tablet PO SCH (08:52)
[2018-07-25] MEDS: Benzocaine 20% Oral Spray 60 ML Can OROPHARYNG PRN ×2 (08:52→21:34)
[2018-07-25] MEDS: Multivitamin/Minerals Therapeutic Tablet PO SCH (08:52)
--- NOTE | 2018-07-25 12:34 | P.PNPSY ---
Subjective Chief Complaint: Overdose Remarks: Medical record reviewed and discussed with nursing staff. Patient is in the day room completing lunch. She is preoccupied with discharge. She continues to minimize the overdose and is somewhat remorseful. She states that her throat still hurts from the intubation. She is sleeping and eating well. Denies SI/ HI. Review of Systems All other systems reviewed negative except as stated in HPI Mental Status Examination Appearance: Appropriate Consciousness: Alert Orientation: x4 Motor Activity: Normal gait Speech: Unremarkable Language: Adequate Fund of Knowledge: Adequate Attention and Concentration: Adequate Memory: Unremarkable (Grossly intact on clinical exam) Mood: Appropriate Affect: Appropriate Thought Process & Associations: Intact Thought Content: Appropriate Hallucination Type: None Delusion Type: None Suicidal Ideation: No Suicidal Plan: No Suicidal Intention: No Homicidal Ideation: No Homicidal Plan: No Homicidal Intention: No Insight: Fair Judgment: Impulsive Assessment and Plan - Assessment (1) Adjustment disorder with mixed disturbance of emotions and conduct Code(s): F43.25 - Adjustment disorder with mixed disturbance of emotions and conduct Status: Acute (2) Alcohol abuse Code(s): F10.10 - Alcohol abuse, uncomplicated Status: Acute - Plan Plan: Continue current treatment plan Justification for Continued Inpatient Stay: Moving patient to a less restrictive environment may result in her decompensation.
[2018-07-25] MEDS: Acetaminophen 325 MG Tablet PO PRN (21:34)
[2018-07-26 05:18] VITALS: BP 147/89; PULSE 79; RESP 16; TEMP 97.4; O2SAT 97
[2018-07-26] MEDS: Levothyroxine 88 MCG Tablet PO SCH (05:40)
[2018-07-26] MEDS: Folic Acid 1 MG Tablet PO SCH (08:20)
[2018-07-26] MEDS: Multivitamin/Minerals Therapeutic Tablet PO SCH (08:20)
[2018-07-26] MEDS: Lisinopril 20 MG Tablet PO SCH (08:21)
--- NOTE | 2018-07-26 13:10 | P.DSPSY ---
Psychiatry Discharge Summary Inpatient Psychiatric care?: Yes Advance Directives: No Mental Health Advance Directive: No Health Care Proxy: No - Admission Admission Date: July 22, 2018 19:58 - Admission Diagnosis (1) Adjustment disorder with mixed disturbance of emotions and conduct Code(s): F43.25 - Adjustment disorder with mixed disturbance of emotions and conduct (2) Alcohol abuse Code(s): F10.10 - Alcohol abuse, uncomplicated Brief History: Ms. Macias is a 58-year-old female with a reported history of depression and anxiety who presents in transfer from [facility] under a Garza Act initiated by law enforcement alleging overdose on Aleve in the setting of alcohol. Documents from outside hospital reviewed. Patient was medically cleared at outside hospital, although she apparently did require intubation initially secondary to her overdose. Reviewing our electronic medical record, it appears this is patient's first visit to [facility]. Patient seen and examined with counselor and nurse. Chart reviewed. Case discussed with nursing staff. Case discussed with counselor. On my examination today, the patient maintains that she does not recall her presenting overdose. She says that she had had a great day the day that she made her overdose. She says that she began drinking with her boyfriend, Benny, after Benny's parents went to sleep as it is typical for them. She says that Benny later informed her that she became upset when he castigated her slurred speech and it was apparently in this setting that the patient made her presenting overdose, although again the patient has no personal recollection of this. She does note that she had been off of her Paxil for 6 days secondary to running out and had been noting that she had been crying more off of this medication. Presently, the patient says that she feels somewhat irritable. She denies any suicidal or homicidal ideation, intent or plan. She has no hypomanic or manic symptoms presently, nor does she give any history of same. She denies any audiovisual hallucinations. I can elicit no delusional believes. The remainder of the psychiatric ROS is negative. She does complain of some throat discomfort secondary to having been intubated. No other acute physical complaints. Tobacco Use In Past 30 Days: Yes How Often Do You Have a Drink Containing Alcohol: 2 to 3 times a week Hospital Course: Patient was admitted to a locked, inpatient psychiatric unit. A general medical consultation was obtained. Appropriate precautions were in place. Patient was seen and examined on the unit by psychiatry and also visited by counselor. Psychotropic medication management was undertaken. Patient's Paxil , which she had been without prior to admission, was resumed. Patient tolerated medication changes well without side effects. Patient had improvement in presenting psychiatric symptomatology during the course of her hospital stay. There was no evidence of any suicidality or homicidality on the inpatient unit. There was no evidence of self-care deficit. Collateral information was obtained by the counselor from the patient's significant other. On the day of discharge: Patient seen and examined with nurse. Chart reviewed. Case discussed with nursing staff. No behavioral issues noted overnight. Case discussed with counselor. On my examination today, the patient is requesting discharge from the inpatient psychiatric unit today. She denies any suicidal or homicidal ideation, intent or plan. Mood is reportedly "pretty good " and I can elicit no severe depressive or hypomanic/manic symptoms. She has no audiovisual hallucinations, and I can elicit no delusional beliefs. She admits that she has not been participating much in group activities noting "I do not like sharing. I am a private person. It does not help me to hear people 's business." She attributes her presenting overdose to alcohol intoxication and being off of her Paxil. We discuss collateral information obtained by counselor from patient's significant other, Benny. In particular, we discuss Benny's concerns that patient was having suicidal ideations for the last 6 months. Patient rebuts this, saying that Benny is remembering a period of mood instability brought on by a trial of Wellbutrin. Patient denies any side effects from medications. She says that she feels "so much better" being back on her Paxil. She has no physical complaints. No signs of any withdrawal. With the patient's permission, I have obtained further collateral information from significant other, Benny, at the number in counselor's notes. Benny has been in communication with patient during this admission. He is now comfortable receiving patient home. He does not have any concerns about patient being an imminent risk of harm to self/others at this point. I have recommended that Benny secure the home environment of potential means of harm to self/others including but not limited to guns, knives and medications ( including the Paxil prescribed today). I have educated Benny regarding mechanisms in place to have patient return to the emergency room for further psychiatric evaluation including voluntary psychiatric evaluation, Garza act and ex parte. We also discuss the [place] Act. Weighing the acute, chronic and protective factors and based on the available evidence, I guidance adviser that the patient no longer meets criteria for involuntary psychiatric hospitalization. There is no evidence of imminent risk of harm to self or others at this point, nor is there evidence of self-care deficit to substantiate involuntary psychiatric hospitalization. We will bolster the patient's protective factors by referring her for outpatient mental health services on discharge. Patient is requesting discharge from the inpatient psychiatric unit today, and I have no basis to retain her over her objection. Patient will be discharged home today with psychiatric follow-up as arranged by counselor. Patient is also to follow up with primary care. I have counseled the patient to abstain from substances of abuse. I have counseled the patient regarding warning signs for need to return to the psychiatric emergency room as part of a general safety plan. - Discharge Discharge Date: 07/26/18 - Discharge Diagnosis (1) Adjustment disorder with mixed disturbance of emotions and conduct Diagnosis: Principal (Resolved) Code(s): F43.25 - Adjustment disorder with mixed disturbance of emotions and conduct Status: Acute (2) Alcohol abuse Diagnosis: Secondary (Counseled to quit) Code(s): F10.10 - Alcohol abuse, uncomplicated Status: Acute Discharge Disposition: Home - Discharge Instructions Discharge Diet: Regular Diet Activities You Can Perform: Weight Bearing As Tolerat - Discharge Time > 30 minutes Mental Status Examination Appearance: Appropriate Consciousness: Alert Orientation: x4 Motor Activity: Other (No motor abnormalities noted. No signs of withdrawal noted.) Speech: Unremarkable Language: Adequate Fund of Knowledge: Adequate Attention and Concentration: Adequate Memory: Unremarkable (Grossly intact on clinical exam) Mood: Appropriate Affect: Appropriate Thought Process & Associations: Intact, Logical, Goal directed, Linear Thought Content: Appropriate Hallucination Type: None Delusion Type: None Suicidal Ideation: No Suicidal Plan: No Suicidal Intention: No Homicidal Ideation: No Homicidal Plan: No Homicidal Intention: No Mental Status Exam Remarks: Insight and judgment are fair Discharge/Advance Care Plan - Results Vital Signs: Last Vital Signs Temp 97.4 F L 07/26/18 05:17 Pulse 79 07/26/18 05:17 Resp 16 07/26/18 05:17 BP 147/89 H 07/26/18 05:17 Pulse Ox 97 07/26/18 05:17 Lab Results: Laboratory Results Hemoglobin A1c 5.1 % (4.3-6.0) 07/23/18 08:40 Triglycerides 237 mg/dL (42-150) H 07/23/18 08:40 Cholesterol 198 mg/dL (120-200) 07/23/18 08:40 LDL Cholesterol, Calc 100 mg/dL (0-99) H 07/23/18 08:40 HDL Cholesterol 50.8 mg/dL (40.0-60.0) 07/23/18 08:40 TSH 0.620 uIU/mL (0.358-3.740) 07/23/18 08:40 Summary of Procedures: None done. Pending Results: None - Medications Number of antipsychotic medications at discharge: 0 - Discharge Care Plan Goals to Promote Your Health: * To prevent worsening of your condition and complications * To maintain your health at the optimal level Directions to Meet Your Goals: Take your medications as prescribed Follow your dietary instruction Follow activity as directed Keep your appointments as scheduled Take your immunizations and boosters as scheduled If your symptoms worsen call your PCP, if no PCP go to Urgent Care Center or Emergency Room For 06/04 questions related to your inpatient stay or results of tests pending at discharge, please contact Dr. Neri Payton MD at Smoking is Dangerous to Your Health. Avoid second hand smoking
== END 2018-07-26 15:15 | disposition home or self-care (01) ==
LOC: H270 19:58 → H260 07-23 10:41
PROVIDERS: ADMIT Psychiatry & Neurology Psychiatry; ATTEND Psychiatry & Neurology Psychiatry